=== PATIENT | female | born 1935 | race Caucasian/White ===

== ENCOUNTER 2016-11-17 21:05 | Emergency (ER) | payer OTHER, MEDICAID ==
[~2016-11-17] VITALS: Ht 154.9 cm; Wt 66.2 kg
[~2016-11-17 21:05] MED LIST: ASPI-482 PO; CALC-98 PO; CIPR500T94 PO; CYAN100031 PO; HYDR-2758 PO; LEVO50TA5 PO; LEVO75TA5 PO; LIDO700A4 TP; LISI-334 PO; LORA0.5T PO; PARO20TA3 PO; SIMV40TA3 PO
[2016-11-17 22:07] LABS: BILIRUBIN,URINE NEGATIVE (NEG); GLUCOSE,URINE NEGATIVE (NEG); NITRITE,URINE POSITIVE (NEG); PH,URINE 6.5; PROTEIN,URINE NEGATIVE (NEG-TRACE); UROBILINOGEN,URINE 0.2 mg/dL (0.2 mg/dL)
[2016-11-17 22:13] LABS: BACTERIA,URINE MANY /HPF (0-FEW); SQUAMOUS EPITHELIAL CELL,UR FEW /LPF; WBC,URINE TNTC /HPF (0-4)
[2016-11-17] MEDS ORDERED: IV NORMAL SALINE 1000ML BAG 1,000 ML IV ONE (22:15)
--- NOTE | 2016-11-17 22:23 | PHYS DOC ---
Past Medical History Past Medical History: Arthritis, Cancer, High Cholesterol, Hypertension, Other Additional Past Medical Histor: phlebitis, bulging disc Past Surgical History: Hysterectomy, Other Additional Past Surgical Histo: skin cancer removal Alcohol Use: None Drug Use: None Adult General Chief Complaint Chief Complaint: PAIN ON URINATION [facility] HPI Patient is a 80 year old female with history of arthritis, hypertension, anxiety, who presents today with dysuria, right low back pain radiating to the right hip, and generalized lower abdominal pain that began 3 days ago. Patient states her doctor's office ordered a urine. She is supposed to be checked for UTI. Patient states she has not received results. Patient denies any nausea vomiting. Denies any hematuria. PCP Dr. Dora Pagan Review of Systems Review of Systems Constitutional: Denies fever or chills [] Eyes: Denies change in visual acuity, redness, or eye pain [] HENT: Denies nasal congestion or sore throat [] Respiratory: Denies cough or shortness of breath [] Cardiovascular: No additional information not addressed in HPI [] GI: Lower abdominal pain : Dysuria Musculoskeletal: Right low back pain radiating to the right hip Integument: Denies rash or skin lesions [] Neurologic: Denies headache, focal weakness or sensory changes [] Endocrine: Denies polyuria or polydipsia [] Current Medications Current Medications Current Medications Medications (Trade) Dose Ordered Sig/Bartolome Start Time Stop Time Status Last Admin Dose Admin Ciprofloxacin Lactate 200 ml @ 200 mls/hr 1X ONCE 11/18/16 00:00 11/18/16 00:59 11/17/16 23:34 200 MLS/HR Fentanyl Citrate (Fentanyl 2ml Vial) 25 mcg 1X ONCE 11/17/16 22:45 11/17/16 22:46 DC 11/17/16 23:22 25 MCG Info (Do NOT chart on this entry -- for MONITORING) 1 each PRN DAILY PRN 11/17/16 22:45 11/19/16 22:44 Iohexol (Omnipaque 300 Mg/ml) 75 ml 1X ONCE 11/17/16 23:00 11/17/16 23:01 DC Sodium Chloride 1,000 ml @ 1,000 mls/hr 1X ONCE 11/17/16 22:15 11/17/16 23:14 DC 11/17/16 23:23 1,000 MLS/HR Allergies Allergies Allergies Coded Allergies Type Severity Reaction Last Updated Verified nitrofurantoin Allergy Intermediate HIVES 05/23/14 Yes nylon Allergy Intermediate TURNS BODY RED 05/23/14 Yes ibuprofen Adverse Reaction Intermediate 05/24/14 Yes propoxyphene Adverse Reaction Intermediate HEADACHE 05/23/14 Yes Physical Exam Physical Exam Constitutional: Well developed, well nourished, no acute distress, non-toxic appearance. [] HENT: Normocephalic, atraumatic, bilateral external ears normal, oropharynx moist, no oral exudates, nose normal. [] Eyes: PERRLA, EOMI, conjunctiva normal, no discharge. [] Neck: Normal range of motion, no tenderness, supple, no stridor. [] Cardiovascular:Heart rate regular rhythm, no murmur [] Lungs & Thorax: Bilateral breath sounds clear to auscultation [] Abdomen: Bowel sounds normal, soft, no tenderness, no masses, no pulsatile masses. [] Skin: Warm, dry, no erythema, no rash. [] Back: No tenderness, slight right CVA tenderness. [] Extremities: No tenderness, no cyanosis, no clubbing, ROM intact, no edema. Negative right leg straight raises. Neurologic: Alert and oriented X 3, normal motor function, normal sensory function, no focal deficits noted. [] Psychologic: Affect normal, judgement normal, mood normal. [] Current Patient Data Vital Signs Vital Signs Date Time Temp Pulse Resp B/P (MAP) Pulse Ox O2 Delivery O2 Flow Rate FiO2 11/17/16 21:28 98.3 79 20 149/69 (95) 94 Room Air 98.3 Lab Values Laboratory Tests Test 11/17/16 22:00 11/17/16 23:05 Urine Collection Type Unknown Urine Color Yellow Urine Clarity Cloudy Urine pH 6.5 Urine Specific [place] 1.025 Urine Protein Negative mg/dL (NEG-TRACE) Urine Glucose (UA) Negative mg/dL (NEG) Urine Ketones (Stick) Negative mg/dL (NEG) Urine Blood Small (NEG) Urine Nitrite Positive (NEG) Urine Bilirubin Negative (NEG) Urine Urobilinogen Dipstick 0.2 mg/dL (0.2 mg/dL) Urine Leukocyte Esterase Large (NEG) Urine RBC 6-10 /HPF (0-2) Urine WBC Tntc /HPF (0-4) Urine Squamous Epithelial Cells Few /LPF Urine Bacteria Many /HPF (0-FEW) Urine Mucus Slight /LPF White Blood Count 10.1 x10^3/uL (4.0-11.0) Red Blood Count 3.49 x10^6/uL (3.50-5.40) L Hemoglobin 11.9 g/dL (12.0-15.5) L Hematocrit 34.9 % (36.0-47.0) L Mean Corpuscular Volume 100 fL (79-100) Mean Corpuscular Hemoglobin 34 pg (25-35) Mean Corpuscular Hemoglobin Concent 34 g/dL (31-37) Red Cell Distribution Width 12.0 % (11.5-14.5) Platelet Count 233 x10^3/uL (140-400) Neutrophils (%) (Auto) 54 % (31-73) Lymphocytes (%) (Auto) 33 % (24-48) Monocytes (%) (Auto) 10 % (0-9) H Eosinophils (%) (Auto) 2 % (0-3) Basophils (%) (Auto) 1 % (0-3) Neutrophils # (Auto) 5.5 x10^3uL (1.8-7.7) Lymphocytes # (Auto) 3.4 x10^3/uL (1.0-4.8) Monocytes # (Auto) 1.0 x10^3/uL (0.0-1.1) Eosinophils # (Auto) 0.1 x10^3/uL (0.0-0.7) Basophils # (Auto) 0.1 x10^3/uL (0.0-0.2) Sodium Level 139 mmol/L (136-145) Potassium Level 4.0 mmol/L (3.5-5.1) Chloride Level 102 mmol/L (98-107) Carbon Dioxide Level 32 mmol/L (21-32) Anion Gap 5 (6-14) L Blood Urea Nitrogen 30 mg/dL (7-20) H Creatinine 1.8 mg/dL (0.6-1.0) H Estimated GFR (Cockcroft-Gault) 27.0 BUN/Creatinine Ratio 17 (6-20) Glucose Level 114 mg/dL (70-99) H Calcium Level 8.8 mg/dL (8.5-10.1) Total Bilirubin 0.2 mg/dL (0.2-1.0) Aspartate Amino Transferase (AST) 22 U/L (15-37) Alanine Aminotransferase (ALT) 23 U/L (14-59) Alkaline Phosphatase 72 U/L (46-116) Total Protein 7.3 g/dL (6.4-8.2) Albumin 3.6 g/dL (3.4-5.0) Albumin/Globulin Ratio 1.0 (1.0-1.7) Lipase 129 U/L (73-393) Laboratory Tests 11/17/16 23:05 Laboratory Tests 11/17/16 23:05 EKG EKG [] Radiology/Procedures Radiology/Procedures [] Course & Med Decision Making Course & Med Decision Making Pertinent Labs and Imaging studies reviewed. (See chart for details) This is a 80-year-old female patient who presents today with dysuria, bilateral lower abdominal pain, and right low back pain radiating to the lower right lower extremity that began 3 days ago. CBC with no acute findings, CMP with creatinine of 1.8, BUN 30, CT of the abdomen and pelvic is negative for any acute findings, urine positive for infection. Temperature 98.8, heart rate 79, respiration 20 O2 sats 94% on room air, blood pressure 149/69. Patient is alert and oriented. Patient was given 1 L of IV fluid and Cipro in the ED. Consulted with Dr. Ochoa on-call for Dr. Dora Pagan. He requested we discharge patient home with antibiotics and she can follow-up at the clinic. Patient was discharged with Cipro. Dragon Disclaimer Dragon Disclaimer This electronic medical record was generated, in whole or in part, using a voice recognition dictation system. Departure Departure Impression: Primary Impression: Acute cystitis Additional Impressions: Acute renal failure Dehydration Disposition: HOME, SELF-CARE Condition: STABLE Referrals: IKER PAGAN MD (PCP) Contact your doctor's office tomorrow and set up a follow-up appointment Patient Instructions: Urinary Tract Infection Additional Instructions: You were seen for urinary tract infection. Please complete your antibiotics. Take Tylenol every 4 hours as needed for pain. Contact your doctor's office tomorrow and set up a follow-up appointment. Come back to the ED symptoms worsen. Scripts Ciprofloxacin Hcl (CIPRO) 500 Mg Tablet 1 TAB PO BID, #14 TAB Prov: MUTUNGA,[employer] 11/18/16 Problem Qualifiers Primary Impression: Acute cystitis Hematuria presence: without hematuria Qualified Codes: N30.00 - Acute cystitis without hematuria Additional Impressions: Acute renal failure Acute renal failure type: unspecified Qualified Codes: N17.9 - Acute kidney failure, unspecified [employer] Nov 17, 2016 22:23
[2016-11-17] MEDS ORDERED: fentaNYL PF VIAL 100 MCG/2 ML VIAL IV ONE (22:45)
[2016-11-17] MEDS ORDERED: CONTRAST GIVEN MC PRN (22:45)
[2016-11-17] MEDS ORDERED: IOHEXOL 300 MG/ML 75 ML VIAL IV ONE (23:00)
[2016-11-17 23:12] LABS: BASO # 0.1 x10^3/uL (0.0-0.2); BASO % 1 % (0-3); EOS % 2 % (0-3); HEMATOCRIT 34.9 % (36.0-47.0); HEMOGLOBIN 11.9 g/dL (12.0-15.5); LYMPH # 3.4 x10^3/uL (1.0-4.8); LYMPH % 33 % (24-48); MEAN CORPUSCULAR HEMOGLOBIN 34 pg (25-35); MEAN CORPUSCULAR HGB CONC 34 g/dL (31-37); MEAN CORPUSCULAR VOLUME 100 fL (79-100); MONO % 10 % (0-9); NEUT % 54 % (31-73); PLATELET COUNT 233 x10^3/uL (140-400); RED BLOOD COUNT 3.49 x10^6/uL (3.50-5.40); WHITE BLOOD COUNT 10.1 x10^3/uL (4.0-11.0)
[2016-11-17 23:21] LABS: CALCIUM 8.8 mg/dL (8.5-10.1); CREATININE 1.8 mg/dL (0.6-1.0)
--- NOTE | 2016-11-17 23:25 | RAD ---
PQRS STATEMENT: One or more of the following in the visualized dose reduction techniques were utilized for this study: 1. Automatic exposure control, 2. Adjustment of the mA and/or kV according to patient size, 3. Use of iterative reconstruction technique CT ABDOMEN/PELVIS Indication:abd pain Technique: Multiple contiguous axial images were obtained through the abdomen and pelvis. Coronal and sagittal reformations were created. Comparison: CT abdomen and pelvis from 01/08/2016 Findings: The kidneys are normal in size. There is no evidence for hydronephrosis. There is no nephrolithiasis or ureteral calculus. Ureters are not dilated. The urinary bladder is unremarkable. Again noted is a prominent left renal cyst measuring 6.5 cm.2 The heart size is normal. The lung bases are clear.Evaluation of the abdominal viscera is limited in the absence of IV contrast. The liver and spleen are normal in size. The gallbladder is nondistended. The pancreas, and adrenal glands are within normal limits. There is no abdominopelvic ascites. Abdominal aorta is normal in caliber. .The bowel loops are normal in caliber. The appendix is normal.No destructive osseus lesions are identified. There is sigmoid diverticulosis with no evidence for acute diverticulitis Impression: No evidence for obstructive uropathy. No ascites or inflammatory mass. Normal appendix. Electronically signed by: Ryan Saleh MD (11/17/2016 11:22 PM) [facility]
[2016-11-17 23:28] LABS: ALBUMIN 3.6 g/dL (3.4-5.0); TOTAL BILIRUBIN 0.2 mg/dL (0.2-1.0); TOTAL PROTEIN 7.3 g/dL (6.4-8.2)
[2016-11-18] MEDS ORDERED: CIPR500T94 PO
[2016-11-18] MEDS ORDERED: CIPROFLOXACIN 400MG PREMIX 200 ML IV ONE
[2016-11-18 00:30] VITALS: BP 138/65
== END 2016-11-18 00:43 | disposition home or self-care (01) ==
LOC: ER 21:05
DX: N30.00 Acute cystitis without hematuria (principal); N17.9 Acute kidney failure, unspecified; E86.0 Dehydration; E78.00 Pure hypercholesterolemia, unspecified; F41.9 Anxiety disorder, unspecified; I10 Essential (primary) hypertension; M19.90 Unspecified osteoarthritis, unspecified site; Z88.8 Allergy status to other drugs, medicaments and biological substances; Z88.6 Allergy status to analgesic agent; Z91.048 Other nonmedicinal substance allergy status; Z90.710 Acquired absence of both cervix and uterus
CPT/HCPCS: 36415; 74176; 80053; 81001; 83690; 85027; 87086; 96365; 96375; 99285; J0744; J3010; J7030

== ENCOUNTER 2017-05-25 16:31 | Emergency (ER) | payer OTHER, MEDICAID ==
[2017-05-25] MEDS: HYDROcodone/APAP 7.5/325MG 1 TAB TABLET PO (18:06)
== END 2017-05-25 19:34 | disposition home or self-care (01) ==
LOC: ER 16:31
DX: M54.16 Radiculopathy, lumbar region (principal); I10 Essential (primary) hypertension; E78.00 Pure hypercholesterolemia, unspecified; Z90.710 Acquired absence of both cervix and uterus; Z88.6 Allergy status to analgesic agent; Z88.8 Allergy status to other drugs, medicaments and biological substances
CPT/HCPCS: 72110; 99284